=== PATIENT | female | born 1995 | race Caucasian/White ===

== ENCOUNTER 2019-02-12 10:44 | Emergency (ER) | payer OTHER ==
[~2019-02-12] VITALS: Ht 167.6 cm; Wt 61.2 kg
[2019-02-12] MEDS ORDERED: EPIPEN 2-P0.3 MG/0.3 IJ (11:55)
[2019-02-12] MEDS ORDERED: CLARITIN10 MG PO (11:55)
[2019-02-12] MEDS ORDERED: PATANOL 0.1% 5 M5 ML OPH (11:55)
[2019-02-12] MEDS ORDERED: MEDROL DOSEPAK4 MG PO (11:55)
[2019-02-12] MEDS ORDERED: PEPCID20 MG PO (11:55)
== END 2019-02-12 12:32 | disposition left against medical advice (07) ==
LOC: ED 10:44
DX: J30.81 Allergic rhinitis due to animal (cat) (dog) hair and dander (principal); H57.89 Other specified disorders of eye and adnexa; R09.81 Nasal congestion; R07.0 Pain in throat

== ENCOUNTER 2019-06-11 13:59 | Emergency (ER) | payer OTHER ==
[~2019-06-11] VITALS: Wt 61.2 kg
[~2019-06-11 13:59] MED LIST: CLARITIN10 MG PO; EPIPEN 2-P0.3 MG/0.3 IJ; MEDROL DOSEPAK4 MG PO; PATANOL 0.1% 5 M5 ML OPH; PEPCID20 MG PO
[2019-06-11 14:23] LABS: BILIRUBIN NEGATIVE (NEGATIVE); BLOOD TRACE-INTACT (NEGATIVE); CLARITY CLEAR (CLEAR); COLOR YELLOW (YELLOW); GLUCOSE NEGATIVE (NEGATIVE); KETONE NEGATIVE (NEGATIVE); LEUKO ESTERASE 1+ (NEGATIVE); NITRITE NEGATIVE (NEGATIVE); PH 7.5 (5.0-9.0); UROBILINOGEN 0.2 E.U./dl (0.2-1.0)
[2019-06-11 14:43] LABS: BASO # 0.1 10*3/uL (0.0-0.1); BASO % 0.5 % (0.0-1.0); EOS # 0.6 10*3/uL (0.0-0.4); EOS % 4.7 % (1.0-4.0); HEMATOCRIT 35.6 % (37.0-47.0); HEMOGLOBIN 12.2 g/dl (12.0-16.0); LYMPH # 2.6 10*3/uL (1.3-4.4); LYMPH % 20.6 % (27.0-41.0); MEAN CELL VOLUME 92.7 fl (81.0-99.0); MEAN CORPUSCULAR HGB 31.8 pg (27.0-31.0); MEAN CORPUSCULAR HGB CONC 34.3 g/dl (33.0-37.0); MEAN PLATELET VOLUME 8.6 fl (9.6-12.3); MONO # 0.8 10*3/uL (0.1-1.0); MONO % 6.7 % (3.0-9.0); NEUT # 8.4 10*3/uL (2.3-7.9); NEUT % 67.2 % (47.0-73.0); PLATELET COUNT AUTOMATED 279 10*3/uL (130-400); RED BLOOD COUNT 3.84 10*6/uL (4.10-5.10); RED CELL DISTRI WIDTH 11.2 % (0-14.5); WHITE BLOOD COUNT 12.5 10*3/uL (4.8-10.8)
[2019-06-11 14:45] LABS: RBC 0-2 rbc/hpf (0-2)
[2019-06-11 14:46] LABS: BACTERIA TRACE
[2019-06-11 15:01] LABS: ALBUMIN 3.1 gm/dl (3.1-4.5); ALKALINE PHOSPHATASE 38 U/L (45-117); BUN 9 mg/dl (7-24); CHLORIDE 105 mmol/L (98-107); CREATININE 0.57 mg/dL (0.55-1.02); POTASSIUM 3.6 mmol/L (3.5-5.1); SGOT/AST 6 IU/L (3-35); SGPT/ALT 12 U/L (12-78); SODIUM 137 mmol/L (136-145); TOTAL PROTEIN 6.6 gm/dL (6.4-8.2)
[2019-06-11] MEDS ORDERED: CEPHALEXIN500 M1 PO (15:31)
== END 2019-06-11 15:36 | disposition home or self-care (01) ==
LOC: ED 13:59
PROVIDERS: Nurse Practitioner Family
DX: O23.41 Unspecified infection of urinary tract in pregnancy, first trimester (principal); O46.91 Antepartum hemorrhage, unspecified, first trimester; Z3A.10 10 weeks gestation of pregnancy; Z79.899 Other long term (current) drug therapy